=== PATIENT | female | born 1940 | race Caucasian/White ===

== ENCOUNTER 2024-08-28 00:47 | Inpatient (IN) | payer OTHER, SELFPAY ==
[2024-08-27 21:45] VITALS: BP 134/122; BMI 43.7
[2024-08-27 21:51] VITALS: BP 134/122
--- NOTE | 2024-08-27 22:05 | ED.GENMED ---
History of Present Illness
<SANTO Rubio Last Filed: 08/27/24 23:48>
General
Chief Complaint: Breathing Problem
Source: patient
Exam Limitations: none
Time Seen by Provider: 08/27/24 22:04
History of Present Illness
History of Present Illness:
83-year-old female presents via EMS from the [facility] with difficulty breathing. Staff noticed her to be confused earlier today. She is also had loose stool and diarrhea over the past 3 to 4 days. Patient denies chest pain abdominal
pain. She denies measurable fever. Per EMS she was in the 70s for oxygen saturation on their arrival. They placed on a nonrebreather and brought her here. Since being here he has been alert. She is not typically on oxygen but family states that
she has history of CHF and lymphedema. No other complaints at this time
Phy Exam
<Sander Restrepo PA-C - Last Filed: 08/27/24 23:48>
Physical Exam
Physical Exam:
General: Well-developed female no acute respiratory distress
HEENT: Normocephalic atraumatic
Heart: Regular rate and rhythm
Lungs: Clear no wheeze
Abdomen is soft nontender nondistended
Extremities: Lymphedema noted bilateral lower extremities
Skin is warm no rash
Scores
<SANTO Rubio Last Filed: 08/27/24 23:48>
Heart Failure Risk
Heart Failure Risk Score: Not Applicable
Course
<SANTO Rubio Last Filed: 08/27/24 23:48>
Orders/Labs/Results
Orders:
Orders
08/27/24 22:17
Norovirus by PCR Urgent
NATALIYA Source: Feces/Stool
Specimen Description:
STOOL [C difficile Antigen & Toxins] Urgent
NATALIYA Source: Feces/Stool
Specimen Description:
Stool Culture Urgent
NATALIYA Source: Feces/Stool
Specimen Description:
CR Chest Portable - 1 View Urgent
Comment:
Reason For Exam: sob
Reason Study Needs to be Portable: Patient Unstable
08/27/24 22:32
Complete Blood Count/With Diff Urgent
Comprehensive Metabolic Panel Urgent
NT-proBNP Urgent
Influenza A+B Rapid Molecular Urgent
NATALIYA Source: Nasal Swab
Specimen Description:
08/27/24 22:33
COVID-19 Antigen Urgent
Source: Nasal Swab
08/27/24 23:21
0.9% Sodium Chloride 1000 ml [Nss] 1,000 ml IV BOLUS
08/27/24 23:22
Urinalysis Reflex To Culture Urgent
08/27/24 23:39
0.9% Sodium Chloride 500 ml [Nss] 500 ml IV BOLUS
08/28/24 00:13
EKG [Electrocardiogram (*1)] Urgent
Reason for Study: Shortness of Breath
Abnormal Lab Results
08/27/24
22:32
RBC 3.39 L 10^6/uL
(4.20-5.40)
Hgb 9.7 L g/dL
(12.0-16.0)
Hct 31.8 L %
(37.0-47.0)
MCHC 30.5 L g/dL
(33.0-37.0)
RDW 16.0 H %
(11.5-14.5)
Abs Immat Gran (auto) 0.1 H 10^3/uL
(0-0.05)
Absolute Lymphs (auto) 0.8 L 10^3/uL
(1.2-3.4)
Immature Gran % 0.9 H %
(0-0.5)
Lymphocytes % 13.6 L %
(20.5-51.1)
BUN 42 H mg/dl
(7-17)
Creatinine 1.9 H mg/dL
(0.6-1.0)
Glucose 178 H mg/dl
(70-99)
Calcium 8.2 L mg/dl
(8.4-10.2)
Total Protein 5.6 L g/dl
(6.3-8.2)
Albumin 2.9 L g/dl
(3.5-5.0)
08/27/24 22:32
08/27/24 22:32
Vital Signs
Initial and Last Documented VS:
Initial Vital Signs
Resp Pulse Ox
24 95
08/27/24 21:44 08/27/24 21:44
Last Documented Vital Signs
Temp Pulse Resp BP Pulse Ox
36.7 C 60 17 98/72 95
08/27/24 21:45 08/28/24 00:00 08/28/24 00:00 08/28/24 00:00 08/28/24 00:00
<Hector Rangel, - Last Filed: 08/28/24 00:17>
Orders/Labs/Results
Orders:
Orders
08/27/24 22:17
Norovirus by PCR Urgent
NATALIYA Source: Feces/Stool
Specimen Description:
STOOL [C difficile Antigen & Toxins] Urgent
NATALIYA Source: Feces/Stool
Specimen Description:
Stool Culture Urgent
NATALIYA Source: Feces/Stool
Specimen Description:
CR Chest Portable - 1 View Urgent
Comment:
Reason For Exam: sob
Reason Study Needs to be Portable: Patient Unstable
08/27/24 22:32
Complete Blood Count/With Diff Urgent
Comprehensive Metabolic Panel Urgent
NT-proBNP Urgent
Influenza A+B Rapid Molecular Urgent
NATALIYA Source: Nasal Swab
Specimen Description:
08/27/24 22:33
COVID-19 Antigen Urgent
Source: Nasal Swab
08/27/24 23:21
0.9% Sodium Chloride 1000 ml [Nss] 1,000 ml IV BOLUS
08/27/24 23:22
Urinalysis Reflex To Culture Urgent
08/27/24 23:39
0.9% Sodium Chloride 500 ml [Nss] 500 ml IV BOLUS
08/28/24 00:13
EKG [Electrocardiogram (*1)] Urgent
Reason for Study: Shortness of Breath
Abnormal Lab Results
08/27/24
22:32
RBC 3.39 L 10^6/uL
(4.20-5.40)
Hgb 9.7 L g/dL
(12.0-16.0)
Hct 31.8 L %
(37.0-47.0)
MCHC 30.5 L g/dL
(33.0-37.0)
RDW 16.0 H %
(11.5-14.5)
Abs Immat Gran (auto) 0.1 H 10^3/uL
(0-0.05)
Absolute Lymphs (auto) 0.8 L 10^3/uL
(1.2-3.4)
Immature Gran % 0.9 H %
(0-0.5)
Lymphocytes % 13.6 L %
(20.5-51.1)
BUN 42 H mg/dl
(7-17)
Creatinine 1.9 H mg/dL
(0.6-1.0)
Glucose 178 H mg/dl
(70-99)
Calcium 8.2 L mg/dl
(8.4-10.2)
Total Protein 5.6 L g/dl
(6.3-8.2)
Albumin 2.9 L g/dl
(3.5-5.0)
08/27/24 22:32
08/27/24 22:32
Vital Signs
Initial and Last Documented VS:
Initial Vital Signs
Resp Pulse Ox
24 95
08/27/24 21:44 08/27/24 21:44
Last Documented Vital Signs
Temp Pulse Resp BP Pulse Ox
36.7 C 60 17 98/72 95
08/27/24 21:45 08/28/24 00:00 08/28/24 00:00 08/28/24 00:00 08/28/24 00:00
<Sander Restrepo PA-C - Last Filed: 08/27/24 23:48>
MDM/Problems Addressed
Differential Diagnosis Includes:
Fatigue hypoxia diarrhea. Consider viral illness versus CHF versus pneumonia. She is requiring 2 L of nasal cannula oxygen currently. If patient provide stool sample will check culture and test for norovirus and C. difficile. Portable chest
x-ray ordered.
<Sander Restrepo PA-C - Last Filed: 08/27/24 23:48>
*Critical Care Note
Total Time (30-74mins, 75-104mins- exclusive of procedures): Not Applicable
<Sander Restrepo PA-C - Last Filed: 08/27/24 23:48>
Update Note
Update Note:
Chest x-ray shows cardiomegaly. Patient is hypotensive here with systolic in the 80s. She has acute kidney injury with a creatinine of 1.9. This could be prerenal from having diarrhea or has a product of chronic kidney disease however I do not
have any labs to compare. Discussed with emergency room attending who saw the patient as well. Will start with small fluid bolus to help blood pressure but patient will need to be admitted for hypoxia in the setting of GEOVANNA. COVID and flu test
were negative.
ED Attending Note
<Sander Restrepo PA-C - Last Filed: 08/27/24 23:48>
-
Portions of this chart may have been created with voice recognition software.� Occasional wrong word or��sound alike� substitutions may have occurred due to the inherent limitations of voice recognition software.
<Hector Jay Juna Carlos, DO - Last Filed: 08/28/24 00:17>
ED Attending Note
Patient seen and examined by attending physician: Yes
I performed the substantive portion of visit, reviewed & personally made and approve the management plan that is documented in note by myself or DALILA.: Yes
ED Attending Note:
I evaluated the patient at bedside. BNP elevated with no old to compare. Creatinine elevated. She was given IV fluids initially. She is resting comfortably on 2 Lpm of supplemental nasal cannula oxygen. Suspect a component of heart failure but
will hold off on diuresis as she arrived hypotensive with renal insufficiency. Low suspicion for PE as she is already on Eliquis.
Discharge Plan
Departure
Patient Disposition: Admit
Date of Disposition: 08/27/24
Time of Disposition: 23:48
Presentation/result/management discussed w/ accepting MD/DO: Hospitalist
Discharge Problem:
CHF (congestive heart failure), GEOVANNA (acute kidney injury)
Prescriptions:
No Action
latanoprost 0.005 % Drops
1 drp OPHTHALMIC (EYE) QPM
metformin 500 mg Tablet
500 mg PO BIDWMEAL
sennosides [senna] 8.6 mg Tablet
8.6 mg PO HS PRN (Reason: constipation)
acetaminophen 325 mg Tablet
650 mg PO Q6H PRN (Reason: pain)
carvedilol 12.5 mg Tablet
12.5 mg PO Q12
miconazole nitrate [Zeasorb AF] 2 % Powder
1 applic TOPICAL BID
guaifenesin 100 mg/5 mL Liquid
200 mg PO Q4H
levothyroxine 88 mcg Tablet
88 mcg PO DAILY
furosemide 20 mg Tablet
20 mg PO DAILY
doxazosin 2 mg Tablet
2 mg PO BID
insulin lispro 100 unit/mL Insulin Pen
1 sliding scale dose SC DIRECTED
fenofibrate nanocrystallized 145 mg Tablet
145 mg PO DAILY
saxagliptin 5 mg Tablet
5 mg PO DAILY
Eliquis 5 mg Tablet
5 mg PO BID
dapagliflozin propanediol 5 mg Tablet
5 mg PO DAILY
Referrals:
Diana Mayer NP [Family Provider] -
Interventions
Interventions:
*Risk Screen - Suicide Last Done: 08/27/24 21:45
*General Assessment Last Done: 08/27/24 21:45
*Neglect/Abuse Screening Last Done: 08/27/24 21:45
*ED COVID-19 Vaccine History Last Done: 08/27/24 23:41
ED- Cardiac Assessment Last Done: 08/27/24 22:11
ED- Pulmonary Assessment Last Done: 08/27/24 22:11
Discharge Date and Time
Print Language: FRENCH
[2024-08-27 22:06] VITALS: BP 92/49
[2024-08-27 22:40] LABS: % Basophils 0.5 % (0-2); % Eosinophils 3.6 % (0-6); % Immature Granulocytes 0.9 % (0-0.5); % Lymphocytes 13.6 % (20.5-51.1); % Monocytes 6.2 % (1.7-9.3); % Neutrophils 75.2 % (42.2-75.2); Absolute Eosinophils 0.2 10^3/uL (0-0.7); Absolute Immature Granulocytes 0.1 10^3/uL (0-0.05); Absolute Lymphocytes 0.8 10^3/uL (1.2-3.4); Absolute Monocytes 0.4 10^3/uL (0.1-0.6); Absolute Neutrophils 4.4 10^3/uL (1.4-6.5); Hematocrit 31.8 % (37.0-47.0); Hemoglobin 9.7 g/dL (12.0-16.0); Mean Corp Hgb Conc. 30.5 g/dL (33.0-37.0); Mean Corpuscular Hgb 28.6 pg (27.0-31.0); Mean Corpuscular Volume 93.8 fL (81.0-99.0); Mean Platelet Volume 9.6 fL (7.4-10.4); Nucleated Red Blood Cells % 0 %; Platelet Count 185 10^3/uL (130-400); Red Blood Cell Count 3.39 10^6/uL (4.20-5.40); White Blood Cell Count 5.8 10^3/uL (4.8-10.8)
[2024-08-27 22:53] LABS: ALT (SGPT) 12 U/L (0-35); AST (SGOT) 21 U/L (14-36); Albumin 2.9 g/dl (3.5-5.0); Alkaline Phosphatase 42 U/L (38-126); Blood Urea Nitrogen 42 mg/dl (7-17); Calcium 8.2 mg/dl (8.4-10.2); Carbon Dioxide 23 mmol/L (22-30); Chloride 104 mmol/L (98-107); Estimated Creatinine Clearance 23 ml/min; Glucose 178 mg/dl (70-99); Potassium 4.3 mmol/L (3.5-5.1); Sodium 135 mmol/L (135-145); Total Bilirubin 0.5 mg/dl (0.2-1.3); Total Protein 5.6 g/dl (6.3-8.2); eGFR 25.88
[2024-08-27 23:01] LABS: NT-proBNP 1910 pg/ml
[2024-08-27 23:02] LABS: COVID-19 Antigen Negative (Negative)
[2024-08-27 23:23] VITALS: BP 87/58
[2024-08-27] MEDS: NSS 500 IV (23:40)
[2024-08-28] VITALS (20 sets, daily range): BP systolic 82–132; BP diastolic 38–84; PULSE 56–64; O2SAT 94–95; BMI 43.7; BMI 44.5
--- NOTE | 2024-08-28 00:51 | HPS.HSE ---
Family Physician
-
Family Physician: Diana Mayer
Chief Complaint
-
Hypoxemia, Diarrhea
History of Present Illness
Patient is an 83y F with PMH significant for hypertension, DM-II and A-Fib who presents to ED for evaluation of hypoxemia at [facility] this evening. Patient is a recent resident at [facility]. She was last hospitalized in June at [facility] where she was newly diagnosed with A-Fib and CHF. She was started on new medications including Eliquis and Lasix at that time. Patient states that she has been having loose stools for the past several days. She reports about 3-4 episodes
per day of non-bloody diarrhea. No abdominal pain. No fevers / chills.
She does admit to non-productive cough which has been present for 'a few weeks'.
This evening she was noted by staff to be hypoxemic with SpO2 at the HI in the 70s reportedly. She had increased [id number] and was somewhat confused.
Patient was sent to the ED for further evaluation.
In the ED, she is saturating adequately on 2 lpm of oxygen.
She has LE edema which she / family note is chronic. Not clear if there is any change from her usual baseline.
Medical History
Past Medical History
Past Medical History: Reports Other
Additional Past Medical History:
Hypertension
DM-II
Paroxysmal Atrial Fibrillation
CHF - Unknown Type
DJD / OA
Obesity
Past Surgical History: Reports Other
Additional Past Surgical History:
Hysterectomy
Cholecystectomy
Hernia Repair
Ectopic
Social History
Tobacco: Non-smoker
Alcohol: None
Drug: None
Family History
Family History: Not pertinent
Allergies / Home Medications
Allergies reflects when Allergies were last updated in [employer].
Home Medications with original date entered in [facility]
Allergy/Medication List:
Allergies
Allergy/AdvReac Type Severity Reaction Status Date / Time
No Known Allergies Allergy Unverified 08/27/24 23:27
Home Medications
acetaminophen 325 mg tablet 650 mg PO Q6H PRN pain 08/27/24
apixaban 5 mg tablet (Eliquis) 5 mg PO BID 08/27/24
carvedilol 12.5 mg tablet 12.5 mg PO Q12 08/27/24
dapagliflozin propanediol 5 mg tablet 5 mg PO DAILY 08/27/24
doxazosin 2 mg tablet 2 mg PO BID 08/27/24
fenofibrate nanocrystallized 145 mg tablet 145 mg PO DAILY 08/27/24
furosemide 20 mg tablet 20 mg PO DAILY 08/27/24
guaifenesin 100 mg/5 mL oral liquid 200 mg PO Q4H 08/27/24
insulin lispro 100 unit/mL subcutaneous pen 1 sliding scale dose SC DIRECTED 08/27/24
latanoprost 0.005 % eye drops 1 drp ophthalmic (eye) QPM 08/27/24
levothyroxine 88 mcg tablet 88 mcg PO DAILY 08/27/24
metformin 500 mg tablet 500 mg PO BIDWMEAL 08/27/24
miconazole nitrate 2 % topical powder (Zeasorb AF) 1 applic topical BID 08/27/24
saxagliptin 5 mg tablet 5 mg PO DAILY 08/27/24
sennosides 8.6 mg tablet (senna) 8.6 mg PO HS PRN constipation 08/27/24
Review of Systems
-
History Source: Patient
A 12 point ROS was completed and negative except as noted: Yes
Constitutional: Denies Fever or Chills
EENT: Denies Sore Throat
Respiratory: Reports Cough; Denies Trouble Breathing
Cardiac: Denies Chest Pain, Diaphoresis, Palpitations or Syncope
Abdomen/GI: Reports Diarrhea; Denies Abdominal Pain, Nausea, Vomiting, Bloody Stools or Black Stools
Musculoskeletal: Reports Joint Pain and Edema
Neurological: Denies Dizzy or Headache
Psych: Denies Depression or Anxiety
Physical Exam
Vital Signs
Vital Signs
Temp Pulse Resp BP Pulse Ox
98.0 F 60 19 98/72 92
08/27/24 21:45 08/28/24 00:15 08/28/24 00:15 08/28/24 00:00 08/28/24 00:15
Physical Exam
General: Other (Pale appearing 83y F in no acute distress.)
HEENT: Other (Dry MM. Neck supple. No JVD.)
Respiratory: Clear; No Wheezes, Rales or Rhonchi
Cardiac: S1/S2, Regular Rhythm and Murmur (II/ LIYL)
GI: Soft, Non Tender, Non Distended and Normal Bowel Sounds
Musculoskeletal: No Clubbing, No Cyanosis and Other (4+ pitting edema b/l LEs to the proximal thighs. No significant change per patient / family.)
Neuro: AO x 3
Laboratory Results
-
08/27/24 22:32
08/27/24 22:32
Laboratory Results
Total Bilirubin 0.5 mg/dl (0.2-1.3) 08/27/24 22:32
AST 21 U/L (14-36) 08/27/24 22:32
ALT 12 U/L (0-35) 08/27/24 22:32
Alkaline Phosphatase 42 U/L (38-126) 08/27/24 22:32
Impression/Plan
-
A/P: Patient is an 83y F with PMH significant for hypertension, A-Fib and CHF who presents to ED for evaluation of hypoxemia and recent diarrhea.
Acute Hypoxemic Respiratory Insufficiency
- Admit for further evaluation and treatment.
- Unclear etiology of hypoxemia - ? secondary to hypotension / hypoperfusion.
- Some recent cough - but afebrile and CXR is unremarkable.
- No evidence of pulmonary edema and volume overload seems unlikely given volume losses and hypotension.
- Continue supportive care.
- Follow temperature curve, monitor for any new / worsening symptoms.
Diarrhea
Hypotension
- Loose stools x 3-4 days per patient. Still on Lasix and SGLT2 as well.
- Hold diuretics. IVF support.
- Follow for improvement in BP / perfusion.
- Check stool studies if able.
- Note that patient was given Imodium at HI prior to transport to the ED.
Paroxysmal Atrial Fibrillation
- Stable. In NSR at present.
- Continue carvedilol with holding parameters.
- Continue Eliquis for stroke risk reduction.
CHF - Unknown Type
Chronic LE Lymphedema
- Suspect hypovolemic at present as noted above.
- Holding diuretics acutely.
- Check Echo.
- Follow daily weights, I/Os, etc.
GEOVANNA v CKD
- SCr = 1.9 with no prior values for comparison.
- Suspect some degree of GEOVANNA due to hypovolemia.
- Follow for improvement with holding diuretics, etc.
Normocytic Anemia
- Unknown acuity / etiology. Was newly started on Eliquis in June for A-Fib.
- Check iron studies, etc.
- Heme test stools.
- Follow for changes in H&H and further work-up as indicated.
DM-II
- Stable. Holding PO medications acutely.
- Follow glucose and cover with SSI as needed.
- Update A1C.
Morbid Obesity due to excess calories
- Affects all aspects of care.
- Encourage health diet and increased activity with goal of weight loss.
DVT Prophylaxis: On Eliquis
Code Status: Full
[2024-08-28 03:52] LABS: Troponin I 0.012 ng/ml
[2024-08-28 03:54] LABS: Iron 55 ug/dl (37-170)
[2024-08-28 04:03] LABS: Percent Saturation 15 % (20-50); Total Iron Binding Capacity 352 ug/dl (265-497)
[2024-08-28 04:26] LABS: TSH Reflex To Free T4 2.78 uIU/ml (0.47-4.68)
[2024-08-28 05:02] LABS: Folate 10.5 ng/ml (2.76-20); Vitamin B12 258 pg/ml (239-931)
[2024-08-28] MEDS: NSS 500 IV (05:12)
[2024-08-28 06:10] LABS: Hematocrit 28.8 % (37.0-47.0); Hemoglobin 8.9 g/dL (12.0-16.0); Mean Corp Hgb Conc. 30.9 g/dL (33.0-37.0); Mean Corpuscular Hgb 29.2 pg (27.0-31.0); Mean Corpuscular Volume 94.4 fL (81.0-99.0); Mean Platelet Volume 9.7 fL (7.4-10.4); Platelet Count 166 10^3/uL (130-400); Red Blood Cell Count 3.05 10^6/uL (4.20-5.40); Red Cell Dist. Width 15.9 % (11.5-14.5); White Blood Cell Count 4.7 10^3/uL (4.8-10.8)
[2024-08-28] MEDS: SYNTHROID PO (06:11)
[2024-08-28 06:22] LABS: Blood Urea Nitrogen 46 mg/dl (7-17); Calcium 8.5 mg/dl (8.4-10.2); Carbon Dioxide 21 mmol/L (22-30); Chloride 108 mmol/L (98-107); Estimated Creatinine Clearance 21 ml/min; Glucose 115 mg/dl (70-99); Potassium 4.3 mmol/L (3.5-5.1); Sodium 138 mmol/L (135-145); eGFR 22.95
[2024-08-28 08:45] LABS: D-Dimer 0.57 ug/mlFEU (0.00-0.50)
[2024-08-28] MEDS: ELIQUIS 2.5 MG PO ×2 (08:53→21:14)
[2024-08-28] MEDS: COREG 12.5 MG PO ×2 (08:53→21:17)
[2024-08-28 08:58] LABS: Troponin I 0.012 ng/ml
[2024-08-28 09:14] LABS: Glycohemoglobin (HgbA1c) 6.8 % (4.0-5.6)
[2024-08-28] MEDS: NOVOLOG FLEXPEN-LOW RESISTANCE SC ×2 (09:38→17:07)
[2024-08-28 09:47] LABS: Glucose - Point of Care 78 mg/dl (70-99)
[2024-08-28 12:50] LABS: Glucose - Point of Care 157 mg/dl (70-99)
[2024-08-28] MEDS: NOVOLOG FLEXPEN-LOW RESISTANCE 1 UNITS SC (13:17)
--- NOTE | 2024-08-28 13:55 | W.PN.HOSP.TC ---
Today's Communication/Plan
-
Assessment / Plan
Assessment / Plan
NAD
Scleral Anicteric
MMM
No JVD
CTABL
RRR, S1/S2
Soft, NT, ND, BS+
Warm, Dry bilateral lower extremity nonpitting edema
AAOx3
Calm
Acute hypoxic respiratory failure. Unclear as to etiology
-Per daughter at bedside while at PCP office was noted to have an spo2 of 91%. CXR at that time was clear
-No diarrhea, but did have loose stools
-Therefore, I do not believe this hypoxia is related to hypovolemia/hyotension
-Will selwyn o2
-Will ask pulm to eval
-Though on eliquis, lower clinical suspicion for PE, will check D-Dimer
-Check a 2d echo, recent Dx of HF, unknown EF
Norovirus +
-Supportive care
-Continue Iso precautions
Jc on ckd
-Baseline Cr around 1.7, this was reported to us by family after speaking with PCP
-Likely related to prerenal etiology
-IVF
-RBUS
-Avoid nephrotoxins and hypotension
Paroxysmal Atrial Fibrillation
- Stable. In NSR at present.
- Continue carvedilol with holding parameters.
- Continue Eliquis for stroke risk reduction.
CHF - Unknown Type
Chronic LE Lymphedema
- Suspect hypovolemic at present as noted above.
- Holding diuretics acutely.
- Check Echo.
- Follow daily weights, I/Os, etc.
DM-II
- Stable. Holding PO medications acutely
- Follow glucose and cover with SSI as needed
Morbid Obesity due to excess calories
- Affects all aspects of care.
- Encourage health diet and increased activity with goal of weight loss.
Anticipated Discharge: > 48 hours
Subjective/Interval History
-
Date of Service: August 28, 2024
Seen and examined. No new complaints. No acute overnight events.
Sitting in bedside chair. Daughter at bedside. On nasal cannula oxygen.
Objective Data
-
Labs:
Laboratory Results
08/28/24
05:49
WBC 4.7 L
Hgb 8.9 L
Hct 28.8 L
Plt Count 166
Sodium 138
Potassium 4.3
Chloride 108 H
Carbon Dioxide 21 L
BUN 46 H
Creatinine 2.1 H
Glucose 115 H
Calcium 8.5
Vital Signs:
Vital Signs
Temp Pulse Resp BP Pulse Ox
97.3 F 62 18 124/56 95
08/28/24 09:15 08/28/24 09:15 08/28/24 09:15 08/28/24 09:15 08/28/24 11:41
I&O
08/27/24 08/28/24 08/29/24
06:59 06:59 06:59
Intake Total 420 / 420
Balance 420 / 420
[2024-08-28 15:07] LABS: Troponin I < 0.012 ng/ml
--- NOTE | 2024-08-28 15:30 | CM ---
Addendum entered by Cindy Herman 08/28/24 16:00:
Pt can return to [facility] once she is symptom-free for 24 hours per their nursing staff
Addendum entered by Cindy Herman 08/28/24 15:36:
Call to alfie/Linda introducing self and explaining role
Of note, if pt needs O2 on dc, [facility] is preferred provider
Original Note:
David spoke with nursing/Phan at [facility]
Pt is a new [facility] resident, been there for about 3 weeks
She is a 1 person assist for transfers and mostly is WC bound
She is able to self propel shorter distances
She is current with [facility]
Is not on oxygen at baseline
Is Ax-O 2-3x
PCP- Dinaa Mayer
Rx- [facility]
Pt on iso precautions for norovirus
[facility] will need to check if they can accept her back on iso
Plan to follow up tomorrow
PT following and pt currently functionally appropriate for return to [facility]
Discharge Disposition- anticipate return to [facility] with [facility], watch for O2 needs
--- NOTE | 2024-08-28 16:27 | PTCARENOTE ---
Patient received as a transfer from [facility] Oriented patient to room, use of call garrett and TV/bed controls. Patient verbalizes understanding of teaching and denies questions. Patient with stable vital signs. Patient sent for US of kidneys as per
order. Enhanced precautions maintained due to positive norovirus.
[2024-08-28 17:08] LABS: Glucose - Point of Care 111 mg/dl (70-99)
--- NOTE | 2024-08-28 17:21 | CON.PUL ---
Consultation
Consultation Request
Date/Time Consultation Requested: 08/28/2024
Date/Time Consultation Performed: 08/28/2024
Requesting Provider: Dr. Waddell
Performing Provider: Dr. Jim Craig
Reason for Consultation: Hypoxemic respiratory sufficiency
Medical History
-
History of Present Illness:
83-year-old woman with significant history of hypertension, type 2 diabetes, atrial fibrillation who presented to the emergency room for hypoxemia on 08/28/2024 from the alf.
Patient is a resident at the [facility]. She was hospitalized in June at [facility] newly diagnosed with heart failure and atrial fibrillation.
For the last several days she has reported loose stools. 3-4 episodes daily of nonbloody diarrhea.
No fevers or chills.
Nonproductive cough for few weeks.
Reportedly she was hypoxemic down to 70% at the alf.
She appeared confused with increased work of breathing per alf report.
She was sent to the hospital for further evaluation.
She was placed on 2 L nasal cannula with adequate oxygenation.
Past Medical History
Past Medical History: Other (See assessment and plan)
Social History
Tobacco: Non-smoker
Alcohol: None
Drug: None
Living: Penitentiary
Family History
Family History: Reviewed & Not Pertinent
Allergies / Home Medications
Allergies
Allergy/AdvReac Type Severity Reaction Status Date / Time
No Known Allergies Allergy Unverified 08/27/24 23:27
Home Medications
�Medication �Instructions �Recorded �Confirmed �Last Taken �Type
acetaminophen 325 mg tablet 650 mg PO Q6H PRN pain 08/27/24 08/27/24 Unknown History
apixaban 5 mg tablet (Eliquis) 5 mg PO BID 08/27/24 08/27/24 Unknown History
carvedilol 12.5 mg tablet 12.5 mg PO Q12 08/27/24 08/27/24 Unknown History
dapagliflozin propanediol 5 mg 5 mg PO DAILY 08/27/24 08/27/24 Unknown History
tablet
doxazosin 2 mg tablet 2 mg PO BID 08/27/24 08/27/24 Unknown History
fenofibrate nanocrystallized 145 145 mg PO DAILY 08/27/24 08/27/24 Unknown History
mg tablet
furosemide 20 mg tablet 20 mg PO DAILY 08/27/24 08/27/24 Unknown History
guaifenesin 100 mg/5 mL oral liquid 200 mg PO Q4H 08/27/24 08/27/24 Unknown History
insulin lispro 100 unit/mL 1 sliding scale dose SC DIRECTED 08/27/24 08/27/24 Unknown History
subcutaneous pen
latanoprost 0.005 % eye drops 1 drp ophthalmic (eye) QPM 08/27/24 08/27/24 Unknown History
levothyroxine 88 mcg tablet 88 mcg PO DAILY 08/27/24 08/27/24 Unknown History
metformin 500 mg tablet 500 mg PO BIDWMEAL 08/27/24 08/27/24 Unknown History
miconazole nitrate 2 % topical 1 applic topical BID 08/27/24 08/27/24 Unknown History
powder (Zeasorb AF)
saxagliptin 5 mg tablet 5 mg PO DAILY 08/27/24 08/27/24 Unknown History
sennosides 8.6 mg tablet (senna) 8.6 mg PO HS PRN constipation 08/27/24 08/27/24 Unknown History
Review of Systems
-
History Source: Patient
All other systems: Negative unless noted
Vitals / Labs / Diagnostic Testing
Vital Signs
Temp Pulse Resp BP Pulse Ox
97.3 F 61 20 123/52 95
08/28/24 15:58 08/28/24 15:58 08/28/24 15:58 08/28/24 15:58 08/28/24 16:33
Lab Data
08/28/24 05:49
08/28/24 05:49
Microbiology
08/28/24 05:01 Feces/Stool C. difficile GDH Antigen & Toxins - Final
Negative for toxigenic C.difficile
08/28/24 05:01 Feces/Stool - Final
Positive for Norovirus GII
08/27/24 22:32 Nasal Swab Influenza Types A & B (MALCOM) - Final
Negative for Influenza A & B, NAAT
Negative results must be combined with clinical observations
and patient history.
Nucleic Acid Amplification test (NAAT)performed on the
[employer] platform.
Diagnostic Testing:
Physical Exam
-
HEENT: Normocephalic
Cardiovascular: S1/S2
Respiratory: Non-Labored Respirations
GI: Soft and Non Distended
Neurology: Awake and No Motor Deficits
Skin: Warm
General: Comfortable
Assessment
-
83-year-old woman admitted from a alf complaining of shortness of breath, found to be hypoxemic at the alf reportedly 70%. She was placed on 2 L supplemental oxygen. She was found to have diarrhea and positive for norovirus.
We were consulted for evaluation of hypoxemia.
Hypoxemic respiratory insufficiency-2 L nasal cannula.
Per report 70% pulse ox at the alf with increased work of breathing
Mildly elevated D-dimer but patient on anticoagulation Eliquis without interruption
Negative troponin
Elevated proBNP 1909
Chest x-ray, reviewed, cardiomegaly no evidence for pulmonary edema or infiltrate.
Viral diarrheal illness-norovirus positive
Normocytic anemia
Acute kidney injury-no prior values to compare
Conditions present prior admission:
Paroxysmal atrial fibrillation
Heart failure unknown type
DJD
Obesity
Type 2 diabetes
Hypertension
Hysterectomy
Prior hernia repair
Cholecystectomy
long term resident
Echocardiogram 08/28/2024, report reviewed showed normal LVEF 55 to 60%. Mild LVH. Mildly enlarged right ventricular size with normal function. Mildly dilated right atrium. Mild MR. Mild TR. Mildly elevated pulmonary pressure 44 mmHg.
Assessment and plan:
Unclear etiology for patient's hypoxemia, lung exam are clear bilaterally. Currently on low rate supplemental oxygen.
There is no prior records at [facility] for review.
Patient is comfortable
Does not appear toxic
Denies any cough no phlegm production.
Patient states that she was lethargic when they checked her pulse oximetry. Now she is more alert and awake. She has a strong cough effort.
-
Chest x-ray without acute infiltrate.
No prior history of pulmonary disorders.
With cardiomegaly on chest x-ray and increased proBNP some degree of heart failure responsible but at this point with acute kidney injury and diarrhea would not recommend diuretics.
-
Alternatively with obesity, sedentary lifestyle-hypoventilation/atelectasis at the time of hypoxemia possibility.
Currently at 3 L at rest.
She was able to perform physical therapy today there is no reports of ongoing oxygen saturation.
Mildly increased D-dimer likely appropriate for age. Patient is on chronic anticoagulation due to atrial fibrillation without interruption-doubt thromboembolic disease.
-
Incentive spirometry encouraged
Will obtain home oxygen assessment tomorrow morning. There is persistent hypoxemia then a CT of the chest without IV contrast will be necessary to evaluate lung parenchyma better.
-
Contact isolation for norovirus
Acute kidney injury evaluation per primary team.
-
Will follow
[2024-08-28] MEDS: XALATAN OPHTHALMIC SOLUTION 1 DROP OPHTH (18:04)
[2024-08-28] MEDS: DESENEX/MITRAZOL/ZEASORB 1 APPLIC TOPICAL (21:17)
[2024-08-28 21:36] LABS: Glucose - Point of Care 110 mg/dl (70-99)
[2024-08-29] VITALS (7 sets, daily range): BP systolic 112–160; BP diastolic 52–76; PULSE 58–62; O2SAT 97; BMI 44.5
[2024-08-29] MEDS: SYNTHROID 88 MCG PO (05:50)
[2024-08-29 08:05] LABS: Glucose - Point of Care 41 mg/dl (70-99)
[2024-08-29] MEDS: NOVOLOG FLEXPEN-LOW RESISTANCE SC ×2 (08:17→17:13)
[2024-08-29] MEDS: COREG 12.5 MG PO ×2 (08:18→20:24)
[2024-08-29] MEDS: ELIQUIS 2.5 MG PO ×2 (08:19→20:24)
[2024-08-29] MEDS: DESENEX/MITRAZOL/ZEASORB 1 APPLIC TOPICAL ×2 (08:21→22:33)
[2024-08-29 08:36] LABS: Glucose - Point of Care 55 mg/dl (70-99)
[2024-08-29 08:58] LABS: Glucose - Point of Care 88 mg/dl (70-99)
--- NOTE | 2024-08-29 10:40 | W.PN.PUL3 ---
Today's Communication / Plan
-
Home oxygen assessment later today- currently on 2L .
CT chest ordered per primary team, will review when available.
Incentive spirometry encouraged.
Increase mobility as able.
Assessment
-
83-year-old woman admitted from a residential complaining of shortness of breath, found to be hypoxemic at the residential reportedly 70%. She was placed on 2 L supplemental oxygen. She was found to have diarrhea and positive for norovirus.
We were consulted for evaluation of hypoxemia.
Hypoxemic respiratory insufficiency-2 L nasal cannula.
Per report 70% pulse ox at the residential with increased work of breathing
Mildly elevated D-dimer but patient on anticoagulation Eliquis without interruption
Negative troponin
Elevated proBNP 1909
Chest x-ray, reviewed, cardiomegaly no evidence for pulmonary edema or infiltrate.
Viral diarrheal illness-norovirus positive
Normocytic anemia
Acute kidney injury-no prior values to compare
Conditions present prior admission:
Paroxysmal atrial fibrillation
Heart failure unknown type
DJD
Obesity
Type 2 diabetes
Hypertension
Hysterectomy
Prior hernia repair
Cholecystectomy
assisted resident
Echocardiogram 08/28/2024, report reviewed showed normal LVEF 55 to 60%. Mild LVH. Mildly enlarged right ventricular size with normal function. Mildly dilated right atrium. Mild MR. Mild TR. Mildly elevated pulmonary pressure 44 mmHg.

Assessment and plan:
Unclear etiology for patient's hypoxemia, lung exam are clear bilaterally. Currently on low rate supplemental oxygen 2L.
Sensitive to laying flat in bed. Possibly from obesity.
There is no prior records at [facility] for review.
Patient is comfortable-denies shortness of breath at rest.
Does not appear toxic.
Denies any cough no phlegm production.
Patient states that she was lethargic when they checked her pulse oximetry.
Now she is more alert and awake. She has a strong cough effort.
-
Chest x-ray without acute infiltrate.
No prior history of pulmonary disorders.
With cardiomegaly on chest x-ray and increased proBNP some degree of heart failure responsible but at this point with acute kidney injury and diarrhea would not recommend diuretics.
-
Alternatively with obesity, sedentary lifestyle-hypoventilation/atelectasis at the time of hypoxemia possibility.
Currently at 2 L at rest.
She was able to perform physical therapy - there is no reports of ongoing oxygen saturation.
Mildly increased D-dimer likely appropriate for age. Patient is on chronic anticoagulation due to atrial fibrillation without interruption-doubt thromboembolic disease.
-
Incentive spirometry encouraged
Home oxygen assessment pending. Order was placed to be performed today. If there is oxygen requirements then:
CT of the chest without IV contrast ordered by primary team today 08/29/2024 - will review wnen available.
-
Contact isolation for norovirus
Acute kidney injury evaluation per primary team.
-
Will follow
-
Subjective Data
-
Date of Service:
Date of Service: August 29, 2024
Chief Complaint: Pulmonary Follow Up (Hypoxemia)
Subjective:
Patient denies any pulmonary complaints
Denies abdominal pain nausea or vomiting
Denies shortness of breath at rest
Review of Systems
Cardiopulmonary: Dyspnea (n) and Dyspnea on Exertion (n)
GI: Abdominal Pain (n), Nausea (n) and Diarrhea
Objective Data
Data Reviewed
Vital Signs / I&O / Oxygen:
Vital Signs
Temp Pulse Resp BP Pulse Ox
97.4 F 65 16 120/55 96
08/29/24 06:58 08/29/24 06:58 08/29/24 06:58 08/29/24 06:58 08/29/24 06:58
Intake and Output
08/28/24 08/29/24 08/30/24
06:59 06:59 06:59
Intake Total 420 / 420
Balance 420 / 420
SaO2 96
Nasal Cannula flow liters per 4
minute
Physical Exam
General: Comfortable
HEENT: Normocephalic
Cardiovascular: S1-S2
Respiratory: Non-Labored Respirations
GI: Distended (obese)
Neurology: Awake, Alert, AO x 3 and No Motor Deficits
Skin: Warm
Labs/Micro/Reports
Lab Data
08/28/24 05:49
08/28/24 05:49
Microbiology
08/28/24 05:01 Feces/Stool C. difficile GDH Antigen & Toxins - Final
Negative for toxigenic C.difficile
08/28/24 05:01 Feces/Stool - Final
Positive for Norovirus GII
08/27/24 22:32 Nasal Swab Influenza Types A & B ([facility]ALCOM) - Final
Negative for Influenza A & B, NAAT
Negative results must be combined with clinical observations
and patient history.
Nucleic Acid Amplification test (NAAT)performed on the
[employer] platform.
[2024-08-29 12:23] LABS: Glucose - Point of Care 216 mg/dl (70-99)
[2024-08-29] MEDS: NOVOLOG FLEXPEN-LOW RESISTANCE 2 UNITS SC (12:42)
--- NOTE | 2024-08-29 12:45 | PTCARENOTE ---
Patient with accu check of 41 this morning. Asymptomatic. MD made aware. Hypoglycemic protocol followed with accu checks following of 55 and 88. Patient's diet changed to regular from BRAT. Prior to lunch accu check 216.
--- NOTE | 2024-08-29 12:59 | W.PN.HOSP.TC ---
Today's Communication/Plan
-
Wean oxygen as tolerated
Assessment / Plan
Assessment / Plan
NAD
Scleral Anicteric
MMM
No JVD
Diminished breath sound
RRR, S1/S2
Soft, NT, ND, BS+
Warm, Dry bilateral lower extremity nonpitting edema
AAOx3
Calm
Acute hypoxic respiratory failure. Unclear as to etiology. Potentially acute on chronic HFpEF exacerbation.
-Per daughter at bedside while at PCP office was noted to have an spo2 of 91%. CXR at that time was clear
-No diarrhea, but did have loose stools
-Therefore, I do not believe this hypoxia is related to hypovolemia/hyotension
-Will selwyn o2
-Incentive spirometer
-Pulmonary following
-Dimer high however age-adjusted appropriately
-2D echocardiogram with a EF of 55 to 60% no wall motion abnormalities bilateral ventricular hypertrophy and biatrial dilatation
--Will give 1 dose of IV Lasix [address] does show some groundglass opacities consistent with pulmonary edema
Norovirus +
-Supportive care
-Continue Iso precautions
Jc on ckd
-Baseline Cr around 1.7, this was reported to us by family after speaking with PCP
-Likely related to prerenal etiology
-IVF
-RBUS without evidence of hydronephrosis however there is cortical chronic thinning bilaterally
-Avoid nephrotoxins and hypotension
-Stat BMP ordered along with repeat BMP tomorrow a.m.
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 Will need outpatient thyroid ultrasound
Paroxysmal Atrial Fibrillation
- Stable. In NSR at present.
- Continue carvedilol with holding parameters.
- Continue Eliquis for stroke risk reduction.
CHF -EF of 55 to 60%
Chronic LE Lymphedema
- Suspect hypovolemic at present as noted above.
- Holding diuretics acutely.
- Check Echo.
- Follow daily weights, I/Os, etc.
DM-II
- Stable. Holding PO medications acutely
- Follow glucose and cover with SSI as needed
Morbid Obesity due to excess calories
- Affects all aspects of care.
- Encourage health diet and increased activity with goal of weight loss.
Will begin discharge planning
Anticipated Discharge: Within 24 hours
Subjective/Interval History
-
Date of Service: August 29, 2024
Seen and examined. No new complaints. No acute overnight events. Resting in bed comfortably. On 2 L nasal cannula. Daughter at bedside. Updated.
Objective Data
-
Labs:
Laboratory Results
08/29/24
12:57
Sodium Pending
Potassium Pending
Chloride Pending
Carbon Dioxide Pending
BUN Pending
Creatinine Pending
Glucose Pending
Calcium Pending
Vital Signs:
Vital Signs
Temp Pulse Resp BP Pulse Ox
97.4 F 64 18 114/60 96
08/29/24 11:34 08/29/24 11:34 08/29/24 11:34 08/29/24 11:34 08/29/24 11:34
I&O
08/28/24 08/29/24 08/30/24
06:59 06:59 06:59
Intake Total 420 / 420
Balance 420 / 420
[2024-08-29] MEDS: LASIX 20 MG IV (13:07)
--- NOTE | 2024-08-29 13:49 | CM ---
Spoke with patient bedside.
Spoke with Haily, nurse from the [facility] they will not wean oxygen at the facility.
Patient goal was to go back to the [facility], PT recommending home with VN.
Per daughter Linda patient is at her baseline with ambulation and thinks patient can go back to the facility without rehab. She will discuss with her siblings.
Patient may return to the facility with oxygen, home oxygen assessment pending.
Patient was current with [facility].
Plan: back to the [facility] with VN and possible home oxygen.
[2024-08-29 13:51] LABS: Blood Urea Nitrogen 43 mg/dl (7-17); Calcium 8.4 mg/dl (8.4-10.2); Carbon Dioxide 26 mmol/L (22-30); Chloride 105 mmol/L (98-107); Estimated Creatinine Clearance 25 ml/min; Glucose 205 mg/dl (70-99); Potassium 4.8 mmol/L (3.5-5.1); Sodium 136 mmol/L (135-145); eGFR 27.61
[2024-08-29] MEDS: XALATAN OPHTHALMIC SOLUTION 1 DROP OPHTH (16:08)
[2024-08-29 16:56] LABS: Glucose - Point of Care 139 mg/dl (70-99)
--- NOTE | 2024-08-29 17:46 | PTCARENOTE ---
Report called to receiving RN on . Patient aware of transfer
--- NOTE | 2024-08-29 18:49 | PTCARENOTE ---
Pt received in bed from 4E, daughter @bedside. VSS, 98% 2L. AAOx3, no complaints of pain. Pt wheezing but no complaints of SOB. Oriented to unit by this RN. call garrett in reach, no needs at this time.
[2024-08-29 21:35] LABS: Glucose - Point of Care 237 mg/dl (70-99)
[2024-08-30] VITALS (8 sets, daily range): BP systolic 125–158; BP diastolic 46–78; PULSE 56–71; O2SAT 94; BMI 43.9
[2024-08-30 03:42] LABS: Glucose - Point of Care 152 mg/dl (70-99)
[2024-08-30] MEDS: SYNTHROID 88 MCG PO (06:23)
[2024-08-30 07:24] LABS: Blood Urea Nitrogen 37 mg/dl (7-17); Calcium 8.4 mg/dl (8.4-10.2); Carbon Dioxide 25 mmol/L (22-30); Chloride 107 mmol/L (98-107); Estimated Creatinine Clearance 31 ml/min; Glucose 112 mg/dl (70-99); Potassium 4.3 mmol/L (3.5-5.1); Sodium 136 mmol/L (135-145); eGFR 37.33
[2024-08-30] MEDS: DESENEX/MITRAZOL/ZEASORB 1 APPLIC TOPICAL ×2 (07:50→20:00)
[2024-08-30] MEDS: COREG 12.5 MG PO ×2 (07:50→20:01)
[2024-08-30 07:51] LABS: Glucose - Point of Care 101 mg/dl (70-99)
[2024-08-30] MEDS: NOVOLOG FLEXPEN-LOW RESISTANCE SC (07:51)
[2024-08-30] MEDS: ELIQUIS 2.5 MG PO ×2 (07:51→20:01)
[2024-08-30] MEDS: LASIX 20 MG IV (10:09)
[2024-08-30 11:40] LABS: Glucose - Point of Care 157 mg/dl (70-99)
[2024-08-30] MEDS: NOVOLOG FLEXPEN-LOW RESISTANCE 1 UNITS SC (12:49)
--- NOTE | 2024-08-30 13:23 | PN.CDI ---
CDI
- -
CDI:
Physician Documentation Request
Admit Date: 08/28/24 00:47
Dear Doctor Bairon,
Patient admitted for hypoxia.
08/29 Pulmonary PN: 'Hypoxemic respiratory insufficiency-2 L nasal cannula. [facility] with increased work of breathing'
08/29 Hospitalist PN: 'Acute hypoxic respiratory failure. Unclear as to etiology. Potentially acute on chronic HFpEF exacerbation. -Per daughter at bedside while at PCP office was noted to have an spo2 of 91%. CXR at that time was clear'
Selected Entries
08/28/24
09:15 08/28/24
16:33 08/29/24
06:58
Nasal Cannula flow liters per minute 3 4 4
Clarify which of the following accurately represents the patient's respiratory status:
Acute hypoxic respiratory failure
Acute hypoxic respiratory insufficiency
Other
Additional information for Respiratory Failure:
Recognized criteria for Respiratory Failure (Source: [facility] Hospitalist May 2013)
ABGs: (1 or more) Symptoms Please indicate type if known
1. p)2 <60 or RA SPO2 <91% on RA 1. Tachypnea, SOB, dyspnea Hypoxic
2. pCO2 50 and pH <7.35 2. Use of accessory muscles Hypercapnic
3. pO2 decrease of pCO2 increase by 3. Pallor or cyanosis Hypoxic and Hypercapnic
10 mmHg from baseline if known 4. Anxiety or restlessness Unable to determine
5. Unable to speak in full sentences
Supplemental O2 of > 40% (5LPM) Intubation is not required
Use of terms such as suspected, likely, concern for, or probable (associated with a specific diagnosis that is being evaluated, monitored, or treated as if it exists) are acceptable and can be coded in the inpatient setting, when documented at the
time of discharge.
Thank you,
Milagro Antony RN, BSN
CDI Specialist
Available via [place] text
Please use your independent medical judgment in providing your response.
--- NOTE | 2024-08-30 14:32 | W.PN.HOSP.TC ---
Today's Communication/Plan
-
home o2 assessment
iv diuretics
wean o2 as toelrated
Assessment / Plan
Assessment / Plan
NAD
Scleral Anicteric
MMM
No JVD
Diminished breath sound, bibasilar crackle
RRR, S1/S2
Soft, NT, ND, BS+
Warm, Dry bilateral lower extremity nonpitting edema
AAOx3
Calm
Acute hypoxic respiratory failure. Unclear as to etiology. Potentially acute on chronic HFpEF exacerbation.
-Will selwyn o2
-Incentive spirometer
-Pulmonary following
-2D echocardiogram with a EF of 55 to 60% no wall motion abnormalities bilateral ventricular hypertrophy and biatrial dilatation
-CT does show some groundglass opacities consistent with pulmonary edema
-- Redose IV Lasix 20 mg
-Do home O2 assessment
Norovirus +
-Supportive care
-Continue Iso precautions
Geovanna on ckd
-Initially suspected that the GEOVANNA was prerenal as baseline creat was 1.7 coming in with norovirus diarrhea, vomiting. However creatinine continued to increase after IV fluids. This is likely demonstration of renal venous congestion. Provided 20
mg IV Lasix with improvement in renal function.
-RBUS without evidence of hydronephrosis however there is cortical chronic thinning bilaterally
-Avoid nephrotoxins and hypotension
-As we are repeating IV Lasix today. If remains hospitalized then will repeat BMP in the a.m.
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
-Will need outpatient thyroid ultrasound
Paroxysmal Atrial Fibrillation
- Stable. In NSR at present.
- Continue carvedilol with holding parameters.
- Continue Eliquis for stroke risk reduction.
Acute on chornic HFpEF
CHF -EF of 55 to 60%/
Chronic LE Lymphedema
- Suspect hypovolemic at present as noted above.
- Follow daily weights, I/Os, etc.
DM-II
- Stable. Holding PO medications acutely
- Follow glucose and cover with SSI as needed
Morbid Obesity due to excess calories
- Affects all aspects of care.
- Encourage health diet and increased activity with goal of weight loss.
Anticipated Discharge: Within 24 hours
Subjective/Interval History
-
Date of Service: August 30, 2024
Sitting in bedside chair. Currently on 1 L. No new complaints. No acute overnight events.
Objective Data
-
Labs:
Laboratory Results
08/30/24
06:15
Sodium 136
Potassium 4.3
Chloride 107
Carbon Dioxide 25
BUN 37 H
Creatinine 1.4 H
Glucose 112 H
Calcium 8.4
Vital Signs:
Vital Signs
Temp Pulse Resp BP Pulse Ox
97.6 F 57 18 137/75 95
08/30/24 11:24 08/30/24 11:24 08/30/24 11:24 08/30/24 11:24 08/30/24 12:00
I&O
08/29/24 08/30/24 08/31/24
06:59 06:59 06:59
Intake Total 420 / 420 120 / 120
Balance 420 / 420 120 / 120
--- NOTE | 2024-08-30 15:07 | W.PN.PUL3 ---
Today's Communication / Plan
-
Wean off oxygen
Diuresis stable
No additional pulmonary recommendations, recommended
Follow-up in the outpatient setting.
My information will be left in the chart
Sign off
Assessment
-
83-year-old woman [facility] complaining of shortness of breath, found to be hypoxemic at the jail reportedly 70%. She was placed on 2 L supplemental oxygen. She was found to have diarrhea and positive for norovirus.
We were consulted for evaluation of hypoxemia.
Hypoxemic respiratory insufficiency-2 L nasal cannula.
Per report 70% pulse ox at the jail with increased work of breathing
Mildly elevated D-dimer but patient on anticoagulation Eliquis without interruption
Negative troponin
Elevated proBNP 1909
Chest x-ray, reviewed, cardiomegaly no evidence for pulmonary edema or infiltrate.
Viral diarrheal illness-norovirus positive
Normocytic anemia
Acute kidney injury-no prior values to compare
Conditions present prior admission:
Paroxysmal atrial fibrillation
Heart failure unknown type
DJD
Obesity
Type 2 diabetes
Hypertension
Hysterectomy
Prior hernia repair
Cholecystectomy
retirement resident
Echocardiogram 08/28/2024, report reviewed showed normal LVEF 55 to 60%. Mild LVH. Mildly enlarged right ventricular size with normal function. Mildly dilated right atrium. Mild MR. Mild TR. Mildly elevated pulmonary pressure 44 mmHg.

Assessment and plan:
-
Pulmonary status stable
CT chest noted: Consistent more with interstitial pulmonary edema-possibly cardiogenic.
Minimal bronchiolitis not reason for hypoxemia. Could be from chronic microaspiration-no indication for antibiotics. This could be followed in the outpatient setting if patient desires. My information will be left in the chart.
-
Obesity and hypoventilation also contributing.
There is no prior records at [facility] for review.
Patient is comfortable-denies shortness of breath at rest.
Does not appear toxic.
Denies any cough no phlegm production.
Patient states that she was lethargic when they checked her pulse oximetry.
Now she is more alert and awake. She has a strong cough effort.
-
Chest x-ray without acute infiltrate.
No prior history of pulmonary disorders.
With cardiomegaly on chest x-ray and increased proBNP some degree of heart failure responsible but at this point with acute kidney injury and diarrhea would not recommend diuretics. Changes on CAT scan are consistent with pulmonary edema.
Received 1 dose of Lasix.
Oxygen has be wean off oxygen as able.
-
She was able to perform physical therapy - there is no reports of ongoing oxygen saturation.
Mildly increased D-dimer likely appropriate for age. Patient is on chronic anticoagulation due to atrial fibrillation without interruption-doubt thromboembolic disease.
-
Incentive spirometry encouraged
Wean off oxygen as able.
-
Contact isolation for norovirus
Acute kidney injury evaluation per primary team.
-
No additional recommendation from the pulmonary perspective.
My information will left in the chart given minimal bronchiolitis on CAT scan.
Would recommend radiographic follow-up in the future.
Sign off
-
Subjective Data
-
Date of Service:
Date of Service: August 30, 2024
Chief Complaint: Pulmonary Follow Up (Hypoxemia)
Subjective:
No new pulmonary complaints
Denies increased phlegm, cough, does not feel sick.
Review of Systems
General: Fever (n)
Cardiopulmonary: Dyspnea (none at rest)
GI: Abdominal Pain (n) and Nausea (n)
Objective Data
Data Reviewed
Vital Signs / I&O / Oxygen:
Vital Signs
Temp Pulse Resp BP Pulse Ox
97.6 F 57 18 137/75 95
08/30/24 11:24 08/30/24 11:24 08/30/24 11:24 08/30/24 11:24 08/30/24 12:00
Intake and Output
08/29/24 08/30/24 08/31/24
06:59 06:59 06:59
Intake Total 420 / 420 120 / 120
Balance 420 / 420 120 / 120
SaO2 95
Nasal Cannula flow liters per 1
minute
Physical Exam
General: Comfortable
HEENT: Normocephalic
Cardiovascular: S1-S2
Respiratory: Clear and Non-Labored Respirations
GI: Distended (obese)
Neurology: Awake, Alert, AO x 3 and No Motor Deficits
Skin: Warm
Labs/Micro/Reports
Lab Data
08/28/24 05:49
08/30/24 06:15
Microbiology
08/28/24 05:01 Feces/Stool Salmonella/Shigella Culture - Final
No Salmonella, Shigella, Aeromonas or Plesiomonas species
isolated.
08/28/24 05:01 Feces/Stool Campylobacter Culture - Final
No Campylobacter species isolated.
08/28/24 05:01 Feces/Stool Shiga Toxin Test - Final
No E. coli Shiga Toxin 1 or 2 detected.
08/28/24 05:01 Feces/Stool C. difficile GDH Antigen & Toxins - Final
Negative for toxigenic C.difficile
08/28/24 05:01 Feces/Stool - Final
Positive for Norovirus GII
08/27/24 22:32 Nasal Swab Influenza Types A & B ([facility]) - Final
Negative for Influenza A & B, NAAT
Negative results must be combined with clinical observations
and patient history.
Nucleic Acid Amplification test (NAAT)performed on the
[employer] platform.
--- NOTE | 2024-08-30 15:26 | CM ---
Met with patient and her daughter who was at bedside. Patient is still stating that she would like to return right back to the [facility] and not go to SNF despite the indication on behalf of PT and OT. Will call the [facility] to review patient's
functional status to confirm that they can support the scope of her needs.
Plan: Case management will continue to follow and assist with discharge planning. Tentative home when stable/back to [facility].
[2024-08-30 16:39] LABS: Glucose - Point of Care 277 mg/dl (70-99)
[2024-08-30] MEDS: XALATAN OPHTHALMIC SOLUTION 1 DROP OPHTH (17:16)
[2024-08-30] MEDS: NOVOLOG FLEXPEN-LOW RESISTANCE 3 UNITS SC (17:17)
[2024-08-30 21:26] LABS: Glucose - Point of Care 265 mg/dl (70-99)
[2024-08-31 03:14] VITALS: BP 148/66
[2024-08-31] MEDS: SYNTHROID 88 MCG PO (05:43)
[2024-08-31 06:04] VITALS: BMI 43.8
[2024-08-31 07:40] LABS: Glucose - Point of Care 107 mg/dl (70-99)
[2024-08-31 07:52] VITALS: BP 159/54
[2024-08-31 07:59] LABS: Blood Urea Nitrogen 34 mg/dl (7-17); Calcium 8.6 mg/dl (8.4-10.2); Carbon Dioxide 31 mmol/L (22-30); Chloride 104 mmol/L (98-107); Estimated Creatinine Clearance 34 ml/min; Glucose 116 mg/dl (70-99); Potassium 4.3 mmol/L (3.5-5.1); Sodium 137 mmol/L (135-145)
[2024-08-31] MEDS: NOVOLOG FLEXPEN-LOW RESISTANCE SC (08:03)
[2024-08-31] MEDS: ELIQUIS 2.5 MG PO (08:04)
[2024-08-31] MEDS: COREG PO (08:06)
[2024-08-31] MEDS: DESENEX/MITRAZOL/ZEASORB 1 APPLIC TOPICAL ×2 (08:07→20:48)
[2024-08-31] MEDS: LASIX 20 MG IV (09:57)
--- NOTE | 2024-08-31 09:57 | W.PN.HOSP.TC ---
Today's Communication/Plan
-
DC to assisted living facility
More than 30 minutes spent in discharge including
Final examination of the patient
Summarizing hospital stay
Instructions for continuing care to all relevant caregivers
Preparation of discharge records, prescriptions, and referral forms
Total time spent (in minutes): 33mins
Assessment / Plan
Assessment / Plan
NAD
Scleral Anicteric
MMM
No JVD
Diminished breath sound, bibasilar crackle
RRR, S1/S2
Soft, NT, ND, BS+
Warm, Dry bilateral lower extremity nonpitting edema
AAOx3
Calm
Acute hypoxic respiratory failure. Potentially acute on chronic HFpEF exacerbation.
-Wean O2 as tolerated. Currently on 1 to 2 L.
-Incentive spirometer
-Pulmonary following
-2D echocardiogram with a EF of 55 to 60% no wall motion abnormalities bilateral ventricular hypertrophy and biatrial dilatation
-CT does show some groundglass opacities consistent with pulmonary edema
-- Transition to oral Lasix starting tomorrow
Home O2 assessment completed by respiratory therapy, 86%. Will require home O2 with ambulation
Norovirus +
-Supportive care
-Continue Iso precautions
Jc on ckd
-Baseline creat 1.7. Creat peaked at 2.1. Now down to 1.3 after IV diuretics.
-Initially suspected that the JC was prerenal as baseline creat was 1.7 coming in with norovirus diarrhea, vomiting. However creatinine continued to increase after IV fluids. This is likely demonstration of renal venous congestion. Provided 20
mg IV Lasix with improvement in renal function.
-RBUS without evidence of hydronephrosis however there is cortical chronic thinning bilaterally
-Avoid nephrotoxins and hypotension
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
-Will need outpatient thyroid ultrasound
Paroxysmal Atrial Fibrillation
- Stable. In NSR at present.
- Continue carvedilol with holding parameters.
- Continue Eliquis for stroke risk reduction.
Acute on chornic HFpEF
CHF -EF of 55 to 60%/
Chronic LE Lymphedema
- Suspect hypovolemic at present as noted above.
- Follow daily weights, I/Os, etc.
DM-II
- Stable. Holding PO medications acutely
- Follow glucose and cover with SSI as needed
Morbid Obesity due to excess calories
- Affects all aspects of care.
- Encourage health diet and increased activity with goal of weight loss.
Plan to discharge to assisted living facility
Anticipated Discharge: Today
Subjective/Interval History
-
Date of Service: August 31, 2024
Seen and examined. No new complaints. No acute overnight events.
Sitting in bedside chair eating breakfast.
Objective Data
-
Labs:
Laboratory Results
08/31/24
06:28
Sodium 137
Potassium 4.3
Chloride 104
Carbon Dioxide 31 H
BUN 34 H
Creatinine 1.3 H
Glucose 116 H
Calcium 8.6
Vital Signs:
Vital Signs
Temp Pulse Resp BP Pulse Ox
97.7 F 58 18 159/54 92
08/31/24 07:52 08/31/24 08:06 08/31/24 07:52 08/31/24 08:06 08/31/24 07:52
I&O
08/30/24 08/31/24 09/01/24
06:59 06:59 06:59
Intake Total 120 / 120 840 / 840
Balance 120 / 120 840 / 840
--- NOTE | 2024-08-31 10:01 | W.DCSUMMARY ---
Discharge Summary
Discharge Data
Date of Admission: 08/28/24
Date of Discharge: 08/31/24
-
Pending Results: No
Hospital Course
83y F with PMH significant for hypertension, DM-II and A-Fib
Presented with diarrhea and low oxygen saturation at the facility. Found to have norovirus along with an GEOVANNA on CKD with a reported baseline creatinine of 1.7. Renal function peaked at 2.1. This was initially suspected secondary to volume
depletion however after review of imaging studies along with BNP consistent with heart failure as well which is likely the main contributing factor of causing this acute hypoxemia. Started on IV Lasix with improvement of renal function to 1.3.
Although, unable to wean off oxygen was evaluated by respiratory therapy. 86% SpO2 while ambulation on room air. Therefore will be discharged home with home O2.
Will need a thyroid ultrasound as an outpatient as imaging studies are concerning for thyroid gland mass that is compressing the trachea and esophagus.
CXR
IMPRESSION:
Cardiomegaly. No acute pulmonary process.
RBUS
IMPRESSION:
No sonographic evidence for hydronephrosis.
CT Chest
IMPRESSION:
1. Bilateral increased interstitial opacities and peribronchovascular groundglass opacities as above, most likely related to interstitial edema. No effusion.
2. Multifocal small areas of bronchiolitis as above. Infectious bronchiolitis is a differential consideration.
3. Probable exophytic posterior nodule left lobe of the thyroid gland exerting mass effect against the trachea and the esophagus. This could be further evaluated with follow-up thyroid ultrasound.
4. Cardiomegaly. Coronary and aortic atherosclerosis.
2d Echo
CONCLUSIONS
Normal left ventricular size and systolic function. No regional wall motion
abnormalities are seen. LV ejection fraction is 55-60%.
Mild concentric left ventricular hypertrophy.
Mildly enlarged right ventricular size with low normal right ventricular
systolic function.
Mildly dilated right atrium.
Mild mitral regurgitation.
Mild tricuspid regurgitation.
Mildly elevated estimated pulmonary artery pressure 44 mmHg
There is a trace pericardial effusion, no hemodynamic compromise
There is no prior echocardiogram for comparison
Discharge Plan
-
Patient Disposition: Assisted Living
Discharge Diagnosis/Procedures: Norovirus
Acute hypoxemic respiratory failure
GEOVANNA on CKD
Activity Restrictions/Additional Instructions:
Presented with diarrhea and low oxygen saturation at the facility. Found to have norovirus along with an GEOVANNA on CKD with a reported baseline creatinine of 1.7. Renal function peaked at 2.1. This was initially suspected secondary to volume
depletion however after review of imaging studies along with BNP consistent with heart failure as well which is likely the main contributing factor of causing this acute hypoxemia. Started on IV Lasix with improvement of renal function to 1.3.
Although, unable to wean off oxygen was evaluated by respiratory therapy. 86% SpO2 while ambulation on room air. Therefore will be discharged home with home O2.
Will need a thyroid ultrasound as an outpatient as imaging studies are concerning for thyroid gland mass that is compressing the trachea and esophagus.
CXR
IMPRESSION:
Cardiomegaly. No acute pulmonary process.
RBUS
IMPRESSION:
No sonographic evidence for hydronephrosis.
CT Chest
IMPRESSION:
1. Bilateral increased interstitial opacities and peribronchovascular groundglass opacities as above, most likely related to interstitial edema. No effusion.
2. Multifocal small areas of bronchiolitis as above. Infectious bronchiolitis is a differential consideration.
3. Probable exophytic posterior nodule left lobe of the thyroid gland exerting mass effect against the trachea and the esophagus. This could be further evaluated with follow-up thyroid ultrasound.
4. Cardiomegaly. Coronary and aortic atherosclerosis.
2d Echo
CONCLUSIONS
Normal left ventricular size and systolic function. No regional wall motion
abnormalities are seen. LV ejection fraction is 55-60%.
Mild concentric left ventricular hypertrophy.
Mildly enlarged right ventricular size with low normal right ventricular
systolic function.
Mildly dilated right atrium.
Mild mitral regurgitation.
Mild tricuspid regurgitation.
Mildly elevated estimated pulmonary artery pressure 44 mmHg
There is a trace pericardial effusion, no hemodynamic compromise
There is no prior echocardiogram for comparison
Referrals:
Sarkis Basilio DO [Active] - in one to two weeks
Jim Orantes MD [Active] - in four to six weeks (May see TRANSFER CAR OPERATOR)
Diana Mayer NP [Family Provider] -
Prescriptions:
New
miconazole nitrate [Miconazorb AF] 2 % Powder
1 applic topical BID Qty: 85 0RF
Continued
latanoprost 0.005 % Drops
1 drp OPHTHALMIC (EYE) QPM
metformin 500 mg Tablet
500 mg PO BIDWMEAL
sennosides [senna] 8.6 mg Tablet
8.6 mg PO HS PRN (Reason: constipation)
acetaminophen 325 mg Tablet
650 mg PO Q6H PRN (Reason: pain)
carvedilol 12.5 mg Tablet
12.5 mg PO Q12
miconazole nitrate [Zeasorb AF] 2 % Powder
1 applic TOPICAL BID
guaifenesin 100 mg/5 mL Liquid
200 mg PO Q4H
levothyroxine 88 mcg Tablet
88 mcg PO DAILY
furosemide 20 mg Tablet
20 mg PO DAILY
doxazosin 2 mg Tablet
2 mg PO BID
insulin lispro 100 unit/mL Insulin Pen
1 sliding scale dose SC DIRECTED
fenofibrate nanocrystallized 145 mg Tablet
145 mg PO DAILY
saxagliptin 5 mg Tablet
5 mg PO DAILY
Eliquis 5 mg Tablet
5 mg PO BID
dapagliflozin propanediol 5 mg Tablet
5 mg PO DAILY
Discharge Orders:
Discharge Patient (As Directed); Ordered 08/31/24
Ordered By: Sergey Waddell
Discharge Date and Time
Print Language: TAMAZIGHT
[2024-08-31 11:04] VITALS: BP 137/56
[2024-08-31 11:41] LABS: Glucose - Point of Care 250 mg/dl (70-99)
[2024-08-31] MEDS: NOVOLOG FLEXPEN-LOW RESISTANCE 3 UNITS SC (12:30)
[2024-08-31 15:11] VITALS: BP 133/67
--- NOTE | 2024-08-31 15:15 | CM ---
Addendum entered by ILIANA Dinero 08/31/24 17:52:
Loreto from [facility] confirmed that she received everything and she will set up o2. Placed a call to Anand and the [facility] to update.
Patient's daughter needs to call [phone] to alert dispatchers as to what time she will be home.
Addendum entered by ILIANA Dinero 08/31/24 16:40:
Received return call back from Anand, patient's RN who stated that she can accept patient back after reviewing functional status. #For report [phone] and fax [phone]
Placed a call to Loreto Bobby at [facility] who stated that she can provide o2 to patient tonight. Faxed over Facesheet, H&P, o2 SAT testing, Script to [phone]
Patient's daughter stated that patient can take w/c van back to community.
Will complete the paperwork.
Original Note:
Received consult for o2. Placed a call to the [facility] to determine their protocol and whether they can accommodate. Left a message with Candace, who stated that she will have an RN named, Anand, return call to jeffery santillan.
Plan: Case management will continue to follow and assist with discharge planning. Back to [facility], needs o2.
[2024-08-31 16:16] LABS: Glucose - Point of Care 328 mg/dl (70-99)
[2024-08-31] MEDS: NOVOLOG FLEXPEN-LOW RESISTANCE 4 UNITS SC (17:43)
[2024-08-31] MEDS: XALATAN OPHTHALMIC SOLUTION 1 DROP OPHTH (17:44)
[2024-08-31 20:03] VITALS: BP 160/77
[2024-08-31] MEDS: COREG 12.5 MG PO (20:44)
[2024-08-31] MEDS: ELIQUIS 5 MG PO (20:44)
[2024-08-31 21:40] LABS: Glucose - Point of Care 281 mg/dl (70-99)
[2024-08-31 23:30] VITALS: BP 155/77
== END 2024-08-31 17:30 | disposition home or self-care (01) | DRG 391 ==
LOC: 3 WEST ACU 00:47
PROVIDERS: Physician Assistant; ADMITTING PHYSICIAN Hospitalist; ATTENDING PHYSICIAN Hospitalist; CONSULT PHYSICIAN Internal Medicine Critical Care Medicine; EMERGENCY PHYSICIAN Emergency Medicine; FAMILY PHYSICIAN Nurse Practitioner Adult Health
DX: A08.11 Acute gastroenteropathy due to Norwalk agent (principal); I50.33 Acute on chronic diastolic (congestive) heart failure; J96.01 Acute respiratory failure with hypoxia; I13.0 Hypertensive heart and chronic kidney disease with heart failure and stage 1 through stage 4 chronic kidney disease, or unspecified chronic kidney disease; Z68.41 Body mass index [BMI] 40.0-44.9, adult; N17.9 Acute kidney failure, unspecified; J21.9 Acute bronchiolitis, unspecified; E11.22 Type 2 diabetes mellitus with diabetic chronic kidney disease; E66.01 Morbid (severe) obesity due to excess calories; I48.0 Paroxysmal atrial fibrillation; N18.9 Chronic kidney disease, unspecified; I70.0 Atherosclerosis of aorta; I25.10 Atherosclerotic heart disease of native coronary artery without angina pectoris; Z79.4 Long term (current) use of insulin; Z79.01 Long term (current) use of anticoagulants; Z79.84 Long term (current) use of oral hypoglycemic drugs
CPT/HCPCS: 71045; 71250; 76770; 80048; 80053; 82607; 82746; 82962; 83036; 83540; 83550; 83880; 84443; 84484; 85025; 85027; 85379; 87045; 87046; 87324; 87427; 87449; 87502; 87798; 87811; 93005; 93306; 96360; 96361; 97116; 97163; 97166; 97530; 97535; 99285

== ENCOUNTER 2024-09-10 10:40 | Emergency (ER) | payer OTHER, SELFPAY ==
[2024-09-10] VITALS (11 sets, daily range): BP systolic 102–166; BP diastolic 46–104; BMI 42.2
--- NOTE | 2024-09-10 11:00 | ED.GENMED ---
History of Present Illness
General
Chief Complaint: Chest Pain
Source: patient
Time Seen by Provider: 09/10/24 10:46
History of Present Illness
History of Present Illness:
83-year-old female presents from the [facility] with complaint of chest pain earlier this morning after eating breakfast. It was across her chest and went to her jaw. She has a history of atrial tachycardia, atrial fibrillation on Eliquis chronically
on oxygen as well as insulin-dependent diabetes. She states the pain may have lasted for an hour and now is gone. She denies shortness of breath. She still notes a racing heart sensation.
Phy Exam
Physical Exam
Physical Exam:
General: Well-appearing female no acute respiratory distress
HEENT: Normocephalic atraumatic
Heart: Tachycardic but regular
Lungs: Clear subtle expiratory wheeze
Extremities: Mild edema bilateral lower extremities
Skin is warm no rash
Scores
Heart Score for Chest Pain Patients
STEMI patient?: No
History: Slightly or Non-Suspicious
ECG: Normal
Age: >/= 65 years
Risk Factors: >/= 3 Risk Factors or History of CAD
Troponin: </= Normal Limit
Heart Score for Chest Pain Patients: 4
Heart Score Risk: 20.3% MACE over next 6 weeks
Course
Orders/Labs/Results
Orders:
Orders
09/10/24 10:51
Electrocardiogram (*1) Urgent
Reason for Study: Chest Pain
EKG- Treatment ONCE
CR Chest - 2 Views Urgent
Comment:
Reason For Exam: shortness of breath
09/10/24 10:53
Basic Metabolic Panel Urgent
Complete Blood Count/With Diff Urgent
Pro-BNP [NT-proBNP] Urgent
Troponin I Urgent
09/10/24 11:56
Diltiazem HCl [Cardizem] 10 mg IV NOW STA
09/10/24 13:43
Electrocardiogram (*1) Urgent
Reason for Study: Chest Pain
EKG- Treatment ONCE
09/10/24 13:47
Troponin I Urgent
Abnormal Lab Results
09/10/24
10:53
RBC 3.75 L 10^6/uL
(4.20-5.40)
Hgb 10.8 L g/dL
(12.0-16.0)
Hct 32.0 L %
(37.0-47.0)
RDW 15.9 H %
(11.5-14.5)
MPV 10.6 H fL
(7.4-10.4)
Abs Immat Gran (auto) 0.1 H 10^3/uL
(0-0.05)
Immature Gran % 2.2 H %
(0-0.5)
BUN 26 H mg/dl
(7-17)
Creatinine 1.2 H mg/dL
(0.6-1.0)
Glucose 270 H mg/dl
(70-99)
09/10/24 10:53
09/10/24 10:53
Vital Signs
Initial and Last Documented VS:
Initial Vital Signs
Temp Pulse Resp BP Pulse Ox
98.6 F 127 20 137/104 94
09/10/24 10:57 09/10/24 10:57 09/10/24 10:57 09/10/24 10:57 09/10/24 10:57
Last Documented Vital Signs
Temp Pulse Resp BP Pulse Ox
98.6 F 127 20 107/58 93
09/10/24 10:57 09/10/24 11:00 09/10/24 11:00 09/10/24 11:58 09/10/24 10:57
MDM/Problems Addressed
Differential Diagnosis Includes:
Chest pain now resolved. Consider ACS. She is anticoagulated. Given resolution of pain and anticoagulated status, do not suspect PE. Consider pneumonia versus heart failure. Labs pending chest x-ray EKG pending.
*Critical Care Note
Total Time (30-74mins, 75-104mins- exclusive of procedures): Not Applicable
Update Note
Update Note:
Patient remained symptom-free heart rate improved significantly soon after administration of diltiazem. Now she is in a sinus rhythm normal in the rate in 70s. No ischemic changes noted. Initial troponin undetectable repeat troponin 0.025 likely
related to episode of tachycardia. Given resolution of symptoms and asymptomatic presentation currently no indication for admission. Recommend she follow-up with the cardiology team for further evaluation. Stable for discharge back to [facility]
ED Attending Note
-
Portions of this chart may have been created with voice recognition software.� Occasional wrong word or��sound alike� substitutions may have occurred due to the inherent limitations of voice recognition software.
Discharge Plan
Departure
Patient Disposition: Home (Routine Discharge)
Date of Disposition: 09/10/24
Time of Disposition: 15:40
Patient with high blood pressure during this ER visit?: No
Discharge Problem:
tachcardia
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
Prescriptions:
No Action
latanoprost 0.005 % Drops
1 drp OPHTHALMIC (EYE) QPM
metformin 500 mg Tablet
500 mg PO BIDWMEAL
sennosides [senna] 8.6 mg Tablet
8.6 mg PO HS PRN (Reason: constipation)
acetaminophen 325 mg Tablet
650 mg PO Q6H PRN (Reason: pain)
carvedilol 12.5 mg Tablet
12.5 mg PO Q12
miconazole nitrate [Zeasorb AF] 2 % Powder
1 applic TOPICAL BID
guaifenesin 100 mg/5 mL Liquid
200 mg PO Q4H
levothyroxine 88 mcg Tablet
88 mcg PO DAILY
furosemide 20 mg Tablet
20 mg PO DAILY
doxazosin 2 mg Tablet
2 mg PO BID
insulin lispro 100 unit/mL Insulin Pen
1 sliding scale dose SC DIRECTED
fenofibrate nanocrystallized 145 mg Tablet
145 mg PO DAILY
saxagliptin 5 mg Tablet
5 mg PO DAILY
Eliquis 5 mg Tablet
5 mg PO BID
dapagliflozin propanediol 5 mg Tablet
5 mg PO DAILY
miconazole nitrate [Miconazorb AF] 2 % Powder
1 applic topical BID Qty: 85 0RF
Referrals:
Diana Mayer NP [Family Provider] -
Activity Restrictions/Additional Instructions:
Please continue current medications. Return here for worsening symptoms otherwise follow-up with your warehouse inventory clerk.
Interventions
Interventions:
*Risk Screen - Suicide Last Done: 09/10/24 10:57
*General Assessment Last Done: 09/10/24 10:57
*Neglect/Abuse Screening Last Done: 09/10/24 10:57
*ED- Fall Risk Assessment Last Done: 09/10/24 10:57
*ED COVID-19 Vaccine History Last Done: 09/10/24 10:57
ED- Cardiac Assessment Last Done: 09/10/24 10:57
Discharge Date and Time
Print Language: GREEK
[2024-09-10 11:07] LABS: Hemoglobin 10.8 g/dL (12.0-16.0); Mean Corp Hgb Conc. 33.8 g/dL (33.0-37.0); Mean Corpuscular Hgb 28.8 pg (27.0-31.0); Mean Corpuscular Volume 85.3 fL (81.0-99.0); Mean Platelet Volume 10.6 fL (7.4-10.4); Platelet Count 152 10^3/uL (130-400); Red Blood Cell Count 3.75 10^6/uL (4.20-5.40); Red Cell Dist. Width 15.9 % (11.5-14.5); White Blood Cell Count 6.5 10^3/uL (4.8-10.8)
[2024-09-10 11:35] LABS: % Eosinophils 3.7 % (0-6); % Immature Granulocytes 2.2 % (0-0.5); % Lymphocytes 23.6 % (20.5-51.1); % Monocytes 6.8 % (1.7-9.3); % Neutrophils 61.7 % (42.2-75.2); Absolute Basophils 0.1 10^3/uL (0-0.2); Absolute Eosinophils 0.2 10^3/uL (0-0.7); Absolute Immature Granulocytes 0.1 10^3/uL (0-0.05); Absolute Lymphocytes 1.5 10^3/uL (1.2-3.4); Absolute Monocytes 0.4 10^3/uL (0.1-0.6); Nucleated Red Blood Cells % 0 %
[2024-09-10 11:37] LABS: Blood Urea Nitrogen 26 mg/dl (7-17); Glucose 270 mg/dl (70-99)
[2024-09-10 11:38] LABS: Calcium 8.9 mg/dl (8.4-10.2); Carbon Dioxide 28 mmol/L (22-30); Chloride 106 mmol/L (98-107); Estimated Creatinine Clearance 36 ml/min; Sodium 139 mmol/L (135-145); eGFR 44.91
[2024-09-10 11:46] LABS: NT-proBNP 811 pg/ml; Troponin I < 0.012 ng/ml
[2024-09-10] MEDS: CARDIZEM 10 MG IV (11:58)
[2024-09-10 14:20] LABS: Troponin I 0.025 ng/ml
[2024-09-10 20:09] LABS: Glucose - Point of Care 225 mg/dl (70-99)
== END 2024-09-10 23:58 | disposition home or self-care (01) ==
LOC: EMR 10:40
PROVIDERS: Physician Assistant; EMERGENCY PHYSICIAN Emergency Medicine; FAMILY PHYSICIAN Nurse Practitioner Adult Health
DX: R07.9 Chest pain, unspecified (principal); I48.91 Unspecified atrial fibrillation; E11.9 Type 2 diabetes mellitus without complications; I25.10 Atherosclerotic heart disease of native coronary artery without angina pectoris; Z79.01 Long term (current) use of anticoagulants; Z79.4 Long term (current) use of insulin; Z99.81 Dependence on supplemental oxygen
CPT/HCPCS: 99285; 96374; 71046; 80048; 82962; 83880; 84484; 85025; 93005